=== PATIENT | female | born 2005 | race Hispanic/Latino ===

== ENCOUNTER 2025-05-25 08:39 | Emergency (ER) | payer BC, SELFPAY ==
[2025-05-25 08:51] VITALS: BP 130/93; PULSE 81; RESP 14; TEMP 36.9; O2SAT 100
--- NOTE | 2025-05-25 09:11 | ED.FEMALEGU ---
HPI - Female Genitourinary General Stated complaint: VAGINAL DISCOMFORT Time Seen by Provider: 05/25/25 08:55 Source: patient Mode of arrival: ambulatory Limitations: no limitations History of Present Illness HPI Narrative: Christiane is a 20 year old female patient presenting to the clinic today with c/o clumpy itchy vaginal discharge. States the her partner performed oral sex on her 2 days ago and did not rinse their mouth out prior. States he has gotten a yeast infection before due to this. Is having some discomfort with intercourse. Has not tried any OTC treatment. No concern for STI. Denies any fevers, chills, abdominal pain, or back pain. Denies any vaginal odor. No UTI symptoms. Denies concern for . Last menstrual period was 3 weeks ago. Review of Systems Review of Systems: Pertinent positives per HPI. Patient denies any fever, chills, rash, headache, visual changes, dizziness, cough, runny nose, sore throat, shortness of breath, chest pain, palpitations, nausea, vomiting, diarrhea, constipation, abdominal pain, or any urinary issues. PMFSH Comments At the time of my signature, I reviewed and agree with the nursing past medical, surgical, social, and family history. There is no relevant family history pertinent to the patient complaint. Exam Narrative: General: Well-developed, well nourished, in no apparent distress. Head: Normocephalic, atraumatic. Cardio: Regular rate and rhythm, s1 and s2 normal, no murmur appreciated. Resp: Clear to auscultation bilaterally, no rhonchi, rales, wheezing or rubs. Abdomen: Soft, pliable, bowel sounds present in all quadrants, non-tender to palpation, no organomegly, no CVAT tenderness. : Deferred-declined exam- patient self swab Course Course Emergency Course: Portions of this record may have been created with voice recognition software. Level of Care: Express Care Visit Vital Signs Vital signs: Vital Signs Temperature 36.9 C 05/25/25 08:51 Pulse Rate 81 05/25/25 08:51 Respiratory Rate 14 05/25/25 08:51 Blood Pressure 130/93 H 05/25/25 08:51 Pulse Oximetry 100 05/25/25 08:51 Oxygen Delivery Room Air 05/25/25 08:51 Temperature 36.9 C 05/25/25 08:51 Pulse Rate 81 11/21/25 08:51 Respiratory Rate 14 05/25/25 08:51 Blood Pressure 130/93 H 05/25/25 08:51 Pulse Oximetry 100 05/25/25 08:51 Oxygen Delivery Room Air 05/25/25 08:51 Vital signs reviewed MDM - Female Genitourinary MDM Narrative Medical decision making narrative: At the time of visit patient is resting comfortably on the exam table. Patient appears to be nontoxic. C/o clumpy itchy vaginal discharge. States the her partner performed oral sex on her 2 days ago and did not rinse their mouth out prior. States he has gotten a yeast infection before due to this. Is having some discomfort with intercourse. Has not tried any OTC treatment. No concern for STI. Denies any fevers, chills, abdominal pain, or back pain. Denies any vaginal odor. No UTI symptoms. Denies concern for . Last menstrual period was 3 weeks ago. On exam patient has soft, pliable, nondistended abdomen, no tenderness to palpation, bowel sounds present all 4 quadrants, no CVAT tenderness. deferred-patient declined exam and would like to self swab. Patient declined STI testing. Labs: Bacterial vaginosis and genital culture was sent to the lab Plan: I suspect patient has vaginal discharge likely yeast but cannot rule out BV. Will send prescription for Diflucan and wait for BV testing and if this is positive we will call the patient and treat her with Flagyl. Supportive measures were discussed with the patient and they voiced understanding discharge instructions and agrees to treatment plan. Return precautions reviewed Differential Diagnosis Differential diagnosis: Likely bacterial vaginosis, trichomoniasis, vaginitis and other (STI) Discharge Plan Discharge Clinical Impression: Vaginal discharge Patient Disposition: Home Condition: Stable Instructions: Antibiotic Form, Yeast Infection (ED), Vaginal Discharge (ED) Additional Instructions: We have tested you for bacterial vaginosis and yeast. Take Diflucan as prescribed You declined STI testing Avoid any sexual activity- includes oral, anal, or vaginal intercourse until you get results back and have completed any additional recommended treatment regimens. If symptoms worsen after treatment recommend reevaluation with your PCP or OBGYN Patient Language: Kinyarwanda Prescriptions: New fluconazole 150 mg tablet 150 mg PO ONCE Qty: 2 0RF Rx Instructions: as a single dose. May repeat in 72 hours if needed. Follow-up/Referrals: Faisal,Emilia [Other] Time of Disposition: 08:58 Quality NIHSS Nursing Documentation ED NIHSS nursing documentation: reviewed/agree
== END 2025-05-25 09:11 | disposition home or self-care (01) ==
PROVIDERS: Emergency Provider Nurse Practitioner Family
DX: N89.8 Other specified noninflammatory disorders of vagina (principal)
CPT/HCPCS: 87070; 87798; 99203; G0463